=== PATIENT | male | born 1955 | race Caucasian/White ===

== ENCOUNTER 2017-05-23 07:06 | Outpatient (CLI) ==
--- NOTE | 2017-05-23 08:29 | US ---
EXAM: Right upper quadrant ultrasound HISTORY: Fatty liver disease. TECHNIQUE: Ji scale and color Doppler imaging of the right upper quadrant of the abdomen was perfo rmed. Comparison 02/10/2012. FINDINGS: The liver demonstrates diffusely echogenic parenchymal echotexture. Normal blood flow is identified within the portal vein. There is no intrahepatic biliary dilatation. No focal lesions ar e seen within the liver. The right kidney measures 11.7 cm in length. There is no hydronephrosis. The common bile duct is measuring 3.6 mm diameter. There are no gallstones. The gallbladder wall is normal and measures 2.7 mm thick. There is no pericholecystic fluid. The pancreas was not seen due to overlying bowel gas. IMPRESSION: Diffuse fatty infiltration of the liver. No acute abnormalities are seen within the gallbladder. The common bile duct is normal and measures 3.6 mm diameter. The pancreas was not seen on this examination due to overlying bowel gas.
== END 2017-05-23 07:07 | disposition home or self-care (01) ==
LOC: RAD 07:06
PROVIDERS: ATTEND Family Medicine
DX: K76.0 Fatty (change of) liver, not elsewhere classified (principal)

== ENCOUNTER 2018-06-07 07:44 | Outpatient (CLI) ==
--- NOTE | 2018-06-07 12:54 | US ---
EXAM: Ultrasound abdomen limited HISTORY: Abnormal liver enzymes COMPARISON: 05/23/2017 TECHNIQUE: Limited ultrasound abdomen right upper quadrant was performed FINDINGS: Pancreas obscured secondary bowel gas shadowing. Liver normal in size and echogenicity. Main portal vein patent with direction of flow. Gallbladder fluid-filled without gallbladder wall th ickening, pericholecystic fluid, or shadowing gallstones. No biliary duct dilation with common bile duct measuring 0.4 cm. Right kidney measures 10.6 cm in length without hydronephrosis. IMPRESSION: No abnormality identified in the liver, gallbladder, or biliary system.
== END 2018-06-07 07:45 | disposition home or self-care (01) ==
LOC: RAD 07:44
PROVIDERS: ATTEND Family Medicine
DX: K76.0 Fatty (change of) liver, not elsewhere classified (principal); R74.8 Abnormal levels of other serum enzymes

== ENCOUNTER 2018-06-20 08:00 | Outpatient (RCR) ==
--- NOTE | 2018-06-12 16:20 | RS.OPPTEV2 ---
Date of Note: 06/12/18 Visit #: 1 Number of visits approved by Insurance: n/a Date of Evaluation: 06/12/18 Payer Source: Insurance ([employer], no visit limit) Date of Onset/Injury/Change in Status: 01/20/18 Surgery Performed?: No Treatment Diagnosis: R lumbar radiculitis History of Condition/Mechanism of Injury:: pt states his R hip pain began approx 2017 and has progressively gotten worse. Prior Level of Function.....Patient was independent with: ADL's, Self Care, Work /Vocation, Caregiving, Ambulation/Mobility, Community Integration/Access Level of Function: pt retired from [employer], currently works departmental shipping clerk driving semi truck for [employer]. Functional Limitations: Standing Current Subjective/complaints:: pt states that he has increased pain after sitting for a while then when initially stands has pain in area of greater trochanter of R hip radiating into R groin. Treatment Side (optional): Right *Precautions: n/a Medical History Medical History: Diabetes, Arthritis Surgical History Comments:: Left and Right elbow surgery Smoking Status: Never smoker Diagnostic [facility]Imaging[facility] Hx Home Medications: flomax, paxil, crestor, farxiga, metformin, naprosyn Patient's Goals: decrease hip pain Pain Assessment - Pain Description Pain Location: R hip noted at greater trochanter radiating into groin. Current Pain Intensity: 0 Other Comments regarding Pain:: states pain comes and goes, worse after sitting for extended period of time. Functional Outcome Measure LE Functional Scale: 59 - G Codes & Severity Modifier G Codes & Modifier: n/a Source of G Code score: n/a Observation - Observation Inspection: pt with mild resting tremor Posture: Forward Head, Rounded Shoulders, Increased Thoracic Kyphosis Handedness: Left Gait - Gait Pattern General Gait Pattern Observation: No Deviations/Normal General Range of Motion: BUE WFL's with pain on R shld (states needs to have surgery on R shld due to impingement). BLE WFL's with discomfort in R hip with flex Muscle Strength: LUE 5/5. RUE shld flex 4-/5, elbow flex/ext 5/5. BLE 5/5 - ROM Lumbar Flexion: Hand reach to ankles Sidebending to Left: Reach to Proximal Fibular Head Sidebending to Right: Reach to Proximal Fibular Head Lumbar Spine ROM Limitations: Soft Tissue Tightness Comments: Lumbar ROM WFL's without pain with ROM - Strength Trunk Extension: 4 Good Trunk Flexion: 4 Good Trunk Lateral Flexion: 4 Good - Special Tests SOFIA Test: Negative Left, Negative Right SLR Test: Negative Left, Negative Right Seated Dural Stretch Test: Negative Left, Negative Right SI Joint Compression: Negative Hip ROM: Bilaterally WFL's Hip Muscle Strength: Bilaterally WFL's - Right Hip ROM Right Hip ROM Limitations: Soft Tissue Tightness, Tightness on Right Comments: ROM R hip WFL's with pain with hip flex - Left Hip Strength Left Hip Flexion: 5 Normal Left Hip Extension: 5 Normal Left Hip Abduction: 5 Normal Left Hip Adduction: 5 Normal Left Hip External Rotation: 5 Normal Left Hip Internal Rotation: 5 Normal - Right Hip Strength Right Hip Flexion: 4+ Good + Right Hip Extension: 4+ Good + Right Hip Abduction: 4+ Good + Right Hip Adduction: 4+ Good + Comments: pain noted with hip flex. hip scour test + on R, - on L. Tightness noted in B hamstrings R > L. tightness B piriformis R> L. IT band tightness noted on RLE - Special Test SOFIA Test: Negative Left, Negative Right Audrey Test: Negative Left, Positive Right Kali Test: Negative Left, Negative Right Palpation Palpation Findings: Tenderness (noted over greater trochanter) Sensation - Sensation Right Upper Extremity: Intact/Normal Left Upper Extremity: Intact/Normal Right Lower Extremity: Intact/Normal Left Lower Extremity: Intact/Normal Balance - Sitting Balance Static Sitting Balance: Normal Dynamic Sitting Balance: Normal - Standing Balance Static Standing Balance: Normal Dynamic Standing Balance: Normal Interventions - Exercise/Activities/Manual Therapy Exercises/Activities: pt performed BLE hamstring stretch, piriformis stretch, R IT band stretch as well as isometric hip add, and resisted hip abd with green tband. Manual Therapy: n/a HOME EXERCISE PROGRAM: pt given written HEP including hamstring stretch, piriformis stretch, IT band stretch, isometric hip add, resisted hip abd. - Charges Timed Code Treatment Minutes: 48min Total Treatment Time: 54min Procedures billed for this date of service:: eval low, ex EVALUATION COMPLEXITY LEVEL EVALUATION COMPLEXITY LEVEL: HISTORY: Low (DM, OA), EXAM OF BODY SYSTEMS: Low ( pain, strength, muscle tightness), CLINICAL PRESENTATION: Low, CLINICAL DECISION MAKING: Low Assessment Assessment: pt presents with pain in R hip in area of greater trochanter radiating into R groin. Pain is not constant is worse after sitting for a while. pt with no pain reported in lumbar spine. pt with muscle tightness in hamstring, piriformis and IT band noted. Patient Education: Home Exercise Program, Education of Plan of Care Rehab Potential: Good Short Term Goals Goal #1: pt report decreased episodes of pain during day. Goal to be met by: 06/26/18 Goal #2: Decrease muscle tightness R hamstring/piriformis equal to LLE Goal to be met by: 06/26/18 Goal #3: pt independent with initial HEP Goal to be met by: 06/26/18 [facility] Goals Goal #1: pt with no reports of pain in R hip radiating into groin Goal to be met by: 07/13/18 Goal #2: RLE IT band, hamstrings, Piriformis WFL's Goal to be met by: 07/13/18 Goal #3: pt LE functional scale improved to > 70 Goal to be met by: 07/13/18 Plan - Treatment to be Provided Procedures: Therapeutic Exercises, Therapeutic Activity, Manual Therapy, Patient Education Modalities: Electrical Stimulation, Ultrasound/Phonophoresis, Cryotherapy, Hot Packs - Treatment Plan Frequency: 2-3x week Duration: 4 weeks Dates of Shirt Creaser Goals: 07/13/18 Expiration date of current Insurance Approval:: n/a - Treatment Code (1) Right hip pain Code(s): M25.551 - PAIN IN RIGHT HIP (2) Lumbar radiculitis Code(s): M54.16 - RADICULOPATHY, LUMBAR REGION (3) Muscle tightness Code(s): M62.89 - OTHER SPECIFIED DISORDERS OF MUSCLE
--- NOTE | 2018-06-14 09:16 | RS.OPPTDN ---
Subjective Date of Note: 06/14/18 Visit #: 2 Number of visits approved by Insurance: No auth. required Date of Evaluation: 06/12/18 Payer Source: Insurance ([employer], no visit limit) Treatment Diagnosis: R lumbar radiculitis Current Subjective/complaints:: Patient reports he is alredy feeling better after beginning the exercises.He currently has no pain . *Precautions: n/a Pain Assessment - Pain Description Pain Location: lumbar /R hip when present . Current Pain Intensity: 0 - Treatment Modality: Ultrasound Parameters/Method Applied: 10 mins. @ 1.5 w/cm2,continuous mode to lumbar/R hip. Patient Position: Left Sidelying - Heat/Cryotherapy Treatment: Hot Pack (20 mins. to lumbar/R hip ) Interventions - Exercise/Activities/Manual Therapy Exercises/Activities: 20 mins. BLE hamstring stretch, piriformis stretch, R IT band stretch,SKTC,DKTC,pelvic tilts. Total minutes of Exercise: 20 Manual Therapy: n/a Total minutes of Manual Therapy: 0 HOME EXERCISE PROGRAM: pt given written HEP including hamstring stretch, piriformis stretch, IT band stretch, isometric hip add, resisted hip abd. - Charges Timed Code Treatment Minutes: 30 Total Treatment Time: 50 Procedures billed for this date of service:: hp,US,ex Assessment: Patient responds well to stretches,has minimal tenderness upon palpation of the R trochanter,but no sciatica today.He is motivated and compliant to HEP. Patient Education: Education of diagnosis, Body/Joint mechanics, Home Exercise Program, Home Safety, Activity Modification, Education of Plan of Care Patient demonstrates compliance with HEP?: Yes Short Term Goals Goal #1: pt report decreased episodes of pain during day. Goal to be met by: 06/26/18 Progress towards Goal:: Progressing Goal #2: Decrease muscle tightness R hamstring/piriformis equal to LLE Goal to be met by: 06/26/18 Progress towards Goal:: Progressing Goal #3: pt independent with initial HEP Goal to be met by: 06/26/18 Progress towards Goal:: Progressing Assisted Goals Goal #1: pt with no reports of pain in R hip radiating into groin Goal to be met by: 07/13/18 Goal #2: RLE IT band, hamstrings, Piriformis WFL's Goal to be met by: 07/13/18 Goal #3: pt LE functional scale improved to > 70 Goal to be met by: 07/13/18 Plan Dates of Sexual Assault Counsellor Goals: 07/13/18 Expiration date of current Insurance Approval:: 07/13/18 PLAN: Continue PT to reduce/eliminate pain ,return to PLOF .
--- NOTE | 2018-06-16 10:17 | RS.OPPTDN ---
Subjective Date of Note: 06/16/18 Visit #: 3 Number of visits approved by Insurance: No prior authorization required. Date of Evaluation: 06/12/18 Payer Source: Insurance ([employer], no visit limit) Treatment Diagnosis: R lumbar radiculitis Current Subjective/complaints:: Patient reports slight increase in soreness , but feels this is due to sleeping on the R side ,and the pressure caused the R hip to hurt. *Precautions: n/a Pain Assessment - Pain Description Pain Location: R lumbar and hip Pain Description: Dull, Aching Current Pain Intensity: 1-2 / 10 - Treatment Modality: Ultrasound Parameters/Method Applied: 10 mins. ,continuous mode @ 1.5 w/cm2 to R gluteal/ piriformis area. Patient Position: Left Sidelying - Heat/Cryotherapy Treatment: Hot Pack (20 mis. prior to US and exercises) Interventions - Exercise/Activities/Manual Therapy Exercises/Activities: 20 mins. BLE hamstring stretch, piriformis stretch, R IT band stretch,SKTC,DKTC,pelvic tilts.Added contract-relax method for hamstrings. Total minutes of Exercise: 20 Manual Therapy: n/a Total minutes of Manual Therapy: 0 HOME EXERCISE PROGRAM: pt given written HEP including hamstring stretch, piriformis stretch, IT band stretch, isometric hip add, resisted hip abd. - Charges Timed Code Treatment Minutes: 30 Total Treatment Time: 50 Procedures billed for this date of service:: hp,US,ex Patient Education: Education of diagnosis, Body/Joint mechanics, Home Exercise Program, Home Safety, Activity Modification, Education of Plan of Care Patient demonstrates compliance with HEP?: Yes Short Term Goals Goal #1: pt report decreased episodes of pain during day. Goal to be met by: 06/26/18 Progress towards Goal:: Progressing Goal #2: Decrease muscle tightness R hamstring/piriformis equal to LLE Goal to be met by: 06/26/18 Progress towards Goal:: Progressing Goal #3: pt independent with initial HEP Goal to be met by: 06/26/18 Progress towards Goal:: Progressing [employer] Sorter Goals Goal #1: pt with no reports of pain in R hip radiating into groin Goal to be met by: 07/13/18 Goal #2: RLE IT band, hamstrings, Piriformis WFL's Goal to be met by: 07/13/18 Goal #3: pt LE functional scale improved to > 70 Goal to be met by: 07/13/18 Plan Dates of Hull Sorter Goals: 07/13/18 Expiration date of current Insurance Approval:: 07/13/18 PLAN: Continue PT to eliminate back/sciatic pain,return to PLOF.
--- NOTE | 2018-06-20 08:59 | RS.OPPTDN ---
Subjective Date of Note: 06/20/18 Visit #: 4 Number of visits approved by Insurance: NA Date of Evaluation: 06/12/18 Payer Source: Insurance ([employer], no visit limit) Treatment Diagnosis: R lumbar radiculitis Current Subjective/complaints:: Patient reports he continues to improve , tolerated a 5 hour ride over the weekend without elevation of back pain. *Precautions: n/a Pain Assessment - Pain Description Pain Location: lumbar/R hip Pain Description: Tightness Current Pain Intensity: 0 at rest - Heat/Cryotherapy Treatment: Hot Pack (20 mins. prior to exercises) Interventions - Exercise/Activities/Manual Therapy Exercises/Activities: 25 mins. BLE hamstring stretch, SKTC,LTR.Added postural pullbacks today at three different heights using green and black theraband. Total minutes of Exercise: 25 Manual Therapy: n/a Total minutes of Manual Therapy: 0 HOME EXERCISE PROGRAM: pt given written HEP including hamstring stretch, piriformis stretch, IT band stretch, isometric hip add, resisted hip abd. - Charges Timed Code Treatment Minutes: 25 Total Treatment Time: 45 Procedures billed for this date of service:: hp,ex 2 Assessment: Patient progressing well,has less frequency,intensity ,and duration of pain.He has no radiculopathy in the R hip today.He requires cues for speed of exercises when doing the theraband routine.He is motivated to improve and compliant to reommendations. Patient Education: Body/Joint mechanics, Home Exercise Program, Education of Plan of Care Patient demonstrates compliance with HEP?: Yes Short Term Goals Goal #1: pt report decreased episodes of pain during day. Goal to be met by: 06/26/18 Progress towards Goal:: Partially Met Goal #2: Decrease muscle tightness R hamstring/piriformis equal to LLE Goal to be met by: 06/26/18 Progress towards Goal:: Progressing Goal #3: pt independent with initial HEP Goal to be met by: 06/26/18 Progress towards Goal:: Met Building Architect Goals Goal #1: pt with no reports of pain in R hip radiating into groin Goal to be met by: 07/13/18 Progress towards goal: Progressing Goal #2: RLE IT band, hamstrings, Piriformis WFL's Goal to be met by: 07/13/18 Progress towards goal: Progressing Goal #3: pt LE functional scale improved to > 70 Goal to be met by: 07/13/18 Progress towards goal: Progressing Plan Dates of Longterm Goals: 07/13/18 Expiration date of current Insurance Approval:: 07/13/18 PLAN: Cont. skilled PT to strengthen core ,eliminate back pain.
== END 2018-06-21 23:59 ==
PROVIDERS: ATTEND Orthopaedic Surgery
DX: M54.16 Radiculopathy, lumbar region (principal)